=== PATIENT | female | born 1975 | race Caucasian/White ===

== ENCOUNTER 2021-05-21 20:09 | Emergency (ER) | payer OTHER ==
[~2021-05-21] VITALS: Ht 170.2 cm; Wt 142.9 kg
[2021-05-21 20:30] VITALS: BP_SYST 148
--- NOTE | 2021-05-21 20:50 | NUR ---
Patient ambulatory to bed 6 for evaluation
--- NOTE | 2021-05-21 21:15 | NUR ---
MD Guillory in to see patient.
--- NOTE | 2021-05-21 21:30 | NUR ---
PATIENT AAOX4 AND AMBUALTORY FROM HOME C/O Fever and chills x 2 days. States 89 at home, took Tylenol 3 hrs ago. DYURIA X 7 DAYS AND TOOK AZO AT HOME. VSS. DENIES ANY SOB OR CP.
[2021-05-21 22:31] LABS: BILIRUBIN,URINE NEGATIVE (NEGATIVE); BLOOD, URINE 3+ (NEGATIVE); CLARITY/URINE CLEAR (CLEAR); COLOR,URINE YELLOW (YELLOW); GLUCOSE,URINE NEGATIVE (NEGATIVE); KETONES,URINE NEGATIVE (NEGATIVE); LEUKOCYTE ESTERASE ,URINE 3+ (NEGATIVE); NITRITE, URINE NEGATIVE (NEGATIVE); PH,URINE 5.5 (5.0-8.0); PROTEIN URINE 2+ (NEGATIVE); UROBILINOGEN,URINE 0.2 (0.2-1.0)
[2021-05-21 22:53] VITALS: BP_SYST 148
--- NOTE | 2021-05-21 22:53 | NUR ---
Patient given written and verbal discharge instructions and verbalizes understanding. DR. MAREK WYNN MD discussed with patient the results and treatment provided. Patient in stable condition. ID arm band removed. Patient educated on pain management and to follow up with PMD. Pain Scale 0/10 Opportunity for questions provided and answered. Medication side effect fact sheet provided.
[2021-05-21 23:18] LABS: BACTERIA,URINE FEW /HPF (None Seen); WBC,URINE 80-100 /HPF (0-3)
[2021-05-21 23:19] LABS: CALCIUM OXALATE CRYSTALS,UR None Seen /HPF (None Seen); CALCIUM PHOSPHATE CRYSTALS,UR None Seen /HPF (None Seen); OTHER CRYSTALS,URINE None Seen /HPF (None Seen); TRICHOMONAS,URINE None Seen /HPF (None Seen); TRIPLE PHOSPHATE CRYSTAL,UR None Seen /HPF (None Seen); URIC ACID CRYSTALS,URINE None Seen /HPF (None Seen); URINE AMORPHOUS PHOSPHATES None Seen /HPF (None Seen); URINE AMORPHOUS URATE None Seen /HPF (None Seen); YEAST,URINE None Seen /HPF (None Seen)
[2021-05-22 08:59] LABS: URINE SULFO SALICYLIC ACID NEGATIVE (NEGATIVE)
[2021-05-26] MEDS ORDERED: LOM2.5 PO (08:41)
[2021-05-26] MEDS ORDERED: POTA20TA83 PO (08:41)
[2021-05-26] MEDS ORDERED: NITR-85 PO (08:41)
== END 2021-05-21 22:53 | disposition home or self-care (01) ==
LOC: SED 20:09
DX: N39.0 Urinary tract infection, site not specified (principal)
CPT/HCPCS: 81000; 99283

== ENCOUNTER 2021-05-25 11:45 | Emergency (ER) | payer OTHER ==
[~2021-05-25] VITALS: Ht 170.2 cm; Wt 143.8 kg
[2021-05-25 11:55] VITALS: BP_SYST 160
[2021-05-25] MEDS ORDERED: ONDANSETRON HCL 4 MG/2 ML VIAL IVP ONE (12:15)
[2021-05-25] MEDS ORDERED: HAL5 PO (12:49)
[2021-05-25 13:10] LABS: BASOPHILS % (AUTO) 0.3 % (0.0-2.0); EOSINOPHILS # (AUTO) 0.1 K/uL (0.0-0.4); HEMATOCRIT 27.7 % (36-48); HEMOGLOBIN 9.4 g/dL (12.0-16.0); LYMPHOCYTES # (AUTO) 1.3 K/uL (1.0-5.5); LYMPHOCYTES % (AUTO) 14.6 % (20.5-51.5); MEAN CORPUSCULAR HEMOGLOBIN 28 pg (27-31); MEAN CORPUSCULAR HGB CONC 34 % (32-36); MEAN CORPUSCULAR VOLUME 83 fL (79.0-98.0); MONOCYTES # (AUTO) 0.7 K/uL (0.0-1.0); MONOCYTES % (AUTO) 7.9 % (1.7-9.3); NEUTROPHILS # (AUTO) 6.7 K/uL (1.8-7.7); NEUTROPHILS % (AUTO) 76.2 % (40.0-70.0); PLATELET COUNT (AUTO) 322 K/uL (130-430); RED BLOOD CELL COUNT(AUTO) 3.35 MIL/uL (4.2-6.2); RED CELL DISTRIBUTION WIDTH 16.8 % (9.0-15.0); WHITE BLOOD COUNT (AUTO) 8.8 K/uL (4.8-10.8)
[2021-05-25 13:19] LABS: BILIRUBIN,URINE NEGATIVE (NEGATIVE); BLOOD, URINE 3+ (NEGATIVE); CLARITY/URINE SL CLOUDY (CLEAR); COLOR,URINE RED (YELLOW); GLUCOSE,URINE NEGATIVE (NEGATIVE); KETONES,URINE NEGATIVE (NEGATIVE); LEUKOCYTE ESTERASE ,URINE TRACE (NEGATIVE); NITRITE, URINE POSITIVE (NEGATIVE); PROTEIN URINE 3+ (NEGATIVE)
[2021-05-25 13:21] LABS: ANION GAP 9 (5-15); CHLORIDE 94 mmol/L (98-107); CREATININE 0.98 mg/dL (0.55-1.30); GLUCOSE 119 mg/dL (70-99); SODIUM SERUM 129 mmol/L (136-145); UREA NITROGEN, BLOOD 9 mg/dL (8-21)
[2021-05-25 13:28] LABS: ALANINE AMINOTRANSFERASE 17 U/L (12-78); ASPARTATE AMINOTRANSFERASE 30 U/L (10-37); LIPASE 79 U/L (73-393); TOTAL BILIRUBIN 0.4 mg/dL (0.0-1.0)
[2021-05-25 13:29] LABS: GFR AFRICAN AMERICAN 80 mL/min (>90)
[2021-05-25 13:30] LABS: CALCIUM < 5.0 mg/dL (8.4-11.0); POTASSIUM 2.8 mmol/L (3.5-5.1)
[2021-05-25] MEDS ORDERED: MAG HYDROX/AL HYDROX/SIMETH 30 ML, DICYCLOMINE HCL 20 MG, LIDOCAINE VISCOUS 2% 15ML (PO... PO ONE ×3 (13:45)
[2021-05-25] MEDS ORDERED: POTASSIUM CHLORIDE 20 MEQ TAB.PRT.SR PO ONE (14:00)
[2021-05-25] MEDS ORDERED: cefTRIAXone 1 GM in D5W 50 ML IV ONE (14:00)
[2021-05-25 14:07] LABS: BACTERIA,URINE FEW /HPF (None Seen); RBC,URINE 80-100 /HPF (0-3)
[2021-05-25 14:08] LABS: MUCUS,URINE 1+ /LPF (None Seen)
[2021-05-25] MEDS ORDERED: POTA20TA83 PO ×2 (14:11)
[2021-05-25] MEDS ORDERED: LOM2.5 PO ×2 (14:11)
[2021-05-25] MEDS ORDERED: NITR-85 PO ×2 (14:11)
[2021-05-25] MEDS ORDERED: cefTRIAXone 1 GM VIAL ONE (14:17)
[2021-05-25] MEDS ORDERED: cefTRIAXone 1 GM VIAL IM ONE (14:30)
[2021-05-25 14:47] VITALS: BP_SYST 115
[2021-05-26] MEDS ORDERED: POTA20TA83 PO (08:41)
[2021-05-26] MEDS ORDERED: NITR-85 PO (08:41)
[2021-05-26] MEDS ORDERED: LOM2.5 PO (08:41)
== END 2021-05-25 14:47 | disposition home or self-care (01) ==
LOC: SED 11:45
DX: K52.9 Noninfective gastroenteritis and colitis, unspecified (principal); E87.6 Hypokalemia; N39.0 Urinary tract infection, site not specified; Z79.899 Other long term (current) drug therapy
CPT/HCPCS: 36415; 80053; 81000; 83605; 83690; 85025; 87086; 96372; 96374; 99284; J0696; J2001; J2405; 93005